=== PATIENT | female | born 1985 | race Caucasian/White ===

== ENCOUNTER 2018-01-02 23:03 | Emergency (ER) | payer OTHER ==
[~2018-01-02] VITALS: Ht 154.9 cm; Wt 72.3 kg
[~2018-01-02 23:03] MED LIST: COLACE 100100 MG/CAP PO; IBU600 MG PO; PRENATAL1 TA7 PO; ZANTAC 7575 MG PO
[2018-01-02 23:07] VITALS: BP 122/77; PULSE 77; TEMP 98.5
[2018-01-02] MEDS ORDERED: ZANTAC 150MG T150 MG PO (23:11)
== END 2018-01-02 23:42 | disposition home or self-care (01) ==
LOC: COL.ER 23:03
DX: S71.111A Laceration without foreign body, right thigh, initial encounter (principal); Y04.0XXA Assault by unarmed brawl or fight, initial encounter; Y92.009 Unspecified place in unspecified non-institutional (private) residence as the place of occurrence of the external cause

== ENCOUNTER 2018-04-12 06:49 | Inpatient (IN) | payer OTHER ==
[2018-04-12] VITALS (28 sets, daily range): BP systolic 91–150; BP diastolic 39–93; PULSE 80–801; TEMP 98–98.3
[~2018-04-12] VITALS: Ht 154.9 cm; Wt 85.0 kg
[~2018-04-12 06:49] MED LIST changes: +ZANTAC 150MG T150 MG PO
--- NOTE | 2018-04-12 06:55 | NUR ---
Patient presents to unit with complatins on contractions that started at 0300 this am and intensified around 0500, becoming more regular. States occuring every 3-5 minutes. Patient denies any leaking of fluid or bleeding. Patient noted to stop talking and breathe through contractions palpating firm. Patient into bed, assesment completed. SVE completed and patient tolerated well. noted 3-/-2. Patient informed we will monitor for 1 hour and noitify physician of arrival. PAtient states understanding, spouse at bedside.
[2018-04-12] MEDS ORDERED: COLACE 100100 MG/CAP PO (07:05)
--- NOTE | 2018-04-12 08:00 | NUR ---
notified of patient changes, orders to admit recieved, Aaron Garzon CRNA notified of patient request for epidural at 0830. Iv started in left hand.
[2018-04-12 08:28] LABS: BASO % 0.2 % (0.0-2.0); EOS # 0.2 (0.0-0.7); EOS % 1.2 % (0-4.0); GRAN # 9.9 (1.4-6.5); GRAN % 77.3 % (42.2-75.2); HEMATOCRIT 39.6 % (37.0-47.0); HEMOGLOBIN 12.9 g/dl (12.5-16.0); LYMPH # 1.8 (1.2-3.4); LYMPH % 13.8 % (20.0-51.0); MEAN CELL VOLUME 90 fl (80.0-100.0); MEAN CORPUSCULAR HEMOGLOBIN 29 pg (27.0-31.0); MEAN CORPUSCULAR HGB CONC 33 g/dl (33.0-37.0); MEAN PLATELET VOLUME 10.4 fl (7.4-10.4); MONO # 0.9 (0.1-0.6); MONO % 6.7 % (1.7-9.3); PLATELET COUNT 245 K/mm3 (130-400); RED BLOOD COUNT 4.41 M/mm3 (4.10-5.30); REDCELL DISTRIBUTION WIDTH-CV 13.9 % (11.5-14.5)
--- NOTE | 2018-04-12 09:00 | NUR ---
Patient up to edge of bed for placement of epdiural. Aaron Reece CRNA into room for placement of epdiural. Patient prepped, pulse ox in place. Nurse remains at patient bedside. 0900- Single dose given at this time. 0904- Patient laid down into wedge left.
--- NOTE | 2018-04-12 09:30 | NUR ---
Patient self turned to wedge right. Patient resting comfortably in bed at this time, denies needs or concerns.
--- NOTE | 2018-04-12 09:45 | NUR ---
Patiet reports feeling light headed and nauseaus. x1 dose of ephiderine given at 0943 for blood pressure, will conitnue to monitor, fluid bolus initiating.
--- NOTE | 2018-04-12 10:00 | NUR ---
Patient tolerated dose of ephederine, feeling better. will continue to monitor.
--- NOTE | 2018-04-12 10:10 | NUR ---
1010- Ephederine given for blood pressure. will continue to monitor.
--- NOTE | 2018-04-12 11:05 | NUR ---
1030 DR MATHIS HERE FOR EXAM AND AROM PERFORMED. PT REPOSITIONED IN BED IN HIGH SEMI FOWLERS FOR COMFORT. PADS CHANGED.
--- NOTE | 2018-04-12 11:06 | NUR ---
1045 CONTINUES TO VISIT WITH SPOUSE AND IS COMFORTABLE.
--- NOTE | 2018-04-12 11:07 | NUR ---
1100 STATES IS STARTING TO FEEL SLIGHT PRESSURE WITH SOME CONTRACTIONS.
--- NOTE | 2018-04-12 11:48 | NUR ---
1115 CONTINUES TO RST AND VISIT WITH SPOUSE
--- NOTE | 2018-04-12 11:55 | NUR ---
1140 SVE SHOWS CHANGE TO 7CM. PRESSURE SENSATION UNCHANGED AND NO STRONGER. DURAN CATH PLACED EASILY AND CLEAR URINE DRAINING INTO BAG.
--- NOTE | 2018-04-12 14:56 | NUR ---
1245 REMAINS COMFORTBLE AND DENIES INCREASED PRESSURE.
--- NOTE | 2018-04-12 15:01 | NUR ---
1320 PT STTES HAVING INCREASED PRESSURE WITH CONTRACTIONS. SVE SHOW NOW COMPLETE AND +2 STATION. NSY NOTIFIED AND PT READIED FOR DELIVERY.
--- NOTE | 2018-04-12 16:30 | NUR ---
IV SALINE LOCKED. PATIENT AMBULATED TO BATHROOM INDEPENDENT, LAINA CARE PROVIDED, ICE PACK AND TUCKS PROVIDED. EPIDURAL CATH REMOVED. TIP INTACT. PT TOLERATED WELL. PT ABMULATED SELF TO POST ROOM ACCOMPANIED BY THIS NURSE AND . TOLERATED WELL. LABOR NURSE UPDATED ON.
--- NOTE | 2018-04-12 16:53 | NUR ---
1400 HOLDING INFANT AND VERY PLEASED. JUICE AND WATER PROVIDED AND MEDICATED WITH MOTRIN 600 MG PO FOR CONTROL OF PAIN.
--- NOTE | 2018-04-12 17:03 | NUR ---
1415 HOLDING INFANT SKIN TO SKIN.
--- NOTE | 2018-04-12 17:06 | NUR ---
1545 EPIDURAL CATH PULLED EASILY AND IV CAPPED TO INT. ASSISTED TO BATHROOM BY Lucas STERLING. VOIDED, TUCKS AND PERICARE DEMO'D. CLEAN GOWN ON THE AMB TO RM 215.
[2018-04-13 02:00] VITALS: BP 118/75; PULSE 91; TEMP 98.6
[2018-04-13 08:00] VITALS: BP 118/81; PULSE 74
[2018-04-13] MEDS ORDERED: MOTRIN 600600 MG/TAB PO (08:52)
== END 2018-04-13 15:25 | disposition home or self-care (01) | DRG 807 ==
LOC: LDRO 06:49 → LDR 08:04 → OB 16:30
PROVIDERS: Obstetrics & Gynecology; ADMIT Obstetrics & Gynecology
PROC: 10E0XZZ Delivery of Products of Conception, External Approach (ICD-10-PCS; principal; 2018-04-12)
DX: O69.81X0 Labor and delivery complicated by cord around neck, without compression, not applicable or unspecified (principal); Z37.0 Single live birth; Z3A.40 40 weeks gestation of pregnancy; Z22.322 Carrier or suspected carrier of Methicillin resistant Staphylococcus aureus
CPT/HCPCS: J2590; J2795; J7120